=== PATIENT | female | born 1965 | race American Indian/Alaskan Native ===

== ENCOUNTER 2022-02-12 10:15 | Outpatient (CLI) | payer OTHER ==
--- NOTE | 2022-02-12 12:55 | XRay Report ---
Cervical spine-3 views INDICATION: BACK PAIN. COMPARISON: None. IMPRESSION: Normal alignment. Mild mid cervical discogenic DJD. No acute osseous or soft tissue ab normality. Signer Name: Yossi Richard MD Signed: 02/12/2022 12:50 PM Workstation Name: [id number]
== END 2022-02-12 10:16 | disposition home or self-care (01) ==
LOC: XRAY 10:15
PROVIDERS: ATTEND Internal Medicine
DX: Z02.71 Encounter for disability determination (principal); M47.812 Spondylosis without myelopathy or radiculopathy, cervical region
CPT/HCPCS: 72040